=== PATIENT | female | born 1940 | race Native Hawaiian/Other Pacific Islander ===

== ENCOUNTER 2016-07-17 12:01 | Outpatient (CLI) | payer OTHER | END 2016-07-17 12:03 | disposition short-term general hospital (02) | LOC: AMB 12:01 | DX: R06.09 Other forms of dyspnea (principal); R05 Cough | CPT/HCPCS: A0425; A0427 ==

== ENCOUNTER 2016-07-17 12:03 | Emergency (ER) | payer OTHER ==
[~2016-07-17] VITALS: Ht 165.1 cm; Wt 47.6 kg
[2016-07-17 12:03] VITALS: TEMP 98
[2016-07-17 12:50] LABS: PLATELET COUNT 576 K/uL (152-353)
[2016-07-17 13:00] VITALS: BP 147/90
[2016-07-17 13:18] LABS: SODIUM 135 mmol/L (136-145)
== END 2016-07-17 14:30 | disposition home or self-care (01) ==
LOC: ED 12:03
DX: J44.1 Chronic obstructive pulmonary disease with (acute) exacerbation (principal)
CPT/HCPCS: 80053; 81000; 82550; 83880; 84484; 85027; 93005; 99283

== ENCOUNTER 2016-07-19 22:28 | Outpatient (CLI) | payer OTHER | END 2016-07-19 22:29 | disposition short-term general hospital (02) | LOC: AMB 22:28 | DX: R06.09 Other forms of dyspnea (principal) | CPT/HCPCS: A0425; A0429 ==

== ENCOUNTER 2016-07-19 22:33 | Emergency (ER) | payer OTHER ==
[~2016-07-19] VITALS: Ht 157.5 cm; Wt 44.9 kg
[2016-07-19 23:29] VITALS: BP 133/66; TEMP 98.3
== END 2016-07-19 23:40 | disposition home or self-care (01) ==
LOC: ED 22:33
DX: J44.9 Chronic obstructive pulmonary disease, unspecified (principal); F41.8 Other specified anxiety disorders
CPT/HCPCS: 96374; 99283; J2060

== ENCOUNTER 2016-08-08 12:17 | Outpatient (CLI) | payer OTHER | END 2016-08-08 12:18 | disposition short-term general hospital (02) | LOC: AMB 12:17 | DX: R07.89 Other chest pain (principal); W06.XXXA Fall from bed, initial encounter; Y92.092 Bedroom in other non-institutional residence as the place of occurrence of the external cause | CPT/HCPCS: A0425; A0427 ==

== ENCOUNTER 2016-08-08 18:48 | Outpatient (CLI) | payer OTHER | END 2016-08-08 21:00 | disposition short-term general hospital (02) | LOC: AMB 18:48 | DX: S27.0XXA Traumatic pneumothorax, initial encounter (principal); S20.212A Contusion of left front wall of thorax, initial encounter; S22.42XA Multiple fractures of ribs, left side, initial encounter for closed fracture; T79.7XXA Traumatic subcutaneous emphysema, initial encounter; W06.XXXA Fall from bed, initial encounter; Y92.098 Other place in other non-institutional residence as the place of occurrence of the external cause | CPT/HCPCS: A0425; A0427 ==